=== PATIENT | female | born 1960 | race Caucasian/White ===

== ENCOUNTER 2019-06-25 17:16 | Emergency (ER) | payer BC ==
--- NOTE | 2019-06-25 17:37 | ED ---
Neurological HPI - HPI Summary HPI Summary: 58 y/o female presented to [facility] complaining of facial droop that started yesterday morning, 06/24/19. She has also experienced mild but unusual lapses in memory characterized by forgetting tasks. She is not experiencing weakness otherwise but notes that her right eye feels different than her left, noting that it does not feel like she can completely close this eye. states that the patient's facial droop appears to have worsened since onset. 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 - Hx Last Menstrual Period: month ago Onset/Duration: Started days ago, Still Present Timing: Constant Neurological Deficit Location: Facial - droop, right side Pain Intensity: 0 Pain Scale Used: 0-10 Numeric Character: Motor Weakness - facial droop, no other weakness, Confusion - mild memory lapses Associated Signs and Symptoms: Positive: Weakness - facial droop, no other weakness - Allergy/Home Medications Allergies/Adverse Reactions: Allergies Allergy/AdvReac Type Severity Reaction Status Date / Time No Known Allergies Allergy Verified 08/27/14 12:05 Home Medications: Home Medications Gemfibrozil 600 mg PO BID 06/25/19 [History Confirmed 06/25/19] Losartan TAB* [Cozaar TAB*] 100 mg PO DAILY 06/25/19 [History Confirmed 06/25/19 ] PMH/Surg Hx/FS Hx/Imm Hx Endocrine/Hematology History: Denies: Hx Diabetes, Hx Thyroid Disease Cardiovascular History: Denies: Hx Hypertension Respiratory History: Denies: Hx Asthma, Hx Chronic Obstructive Pulmonary Disease (COPD) GI History: Denies: Hx Ulcer - Cancer History Hx Chemotherapy: No Hx Radiation Therapy: No - Surgical History Surgery Procedure, Year, and Place: csection x2 Infectious Disease History: No Infectious Disease History: Denies: Hx Clostridium Difficile, Hx Hepatitis, Hx Human Immunodeficiency Virus (HIV), Hx of Known/Suspected MRSA, Traveled Outside the [place] in Last 30 Days - Family History Known Family History: Positive: Other - GI malignancy - Social History Alcohol Use: Occasionally Substance Use Type: Reports: None Smoking Status (MU): Never Smoked Tobacco Review of Systems Negative: Fever - vitals show temp at 97.4F Eyes: Other - positive - right eye not closing completely Positive: Weakness - facial droop, no other weakness All Other Systems Reviewed And Are Negative: Yes Physical Exam - Summary Physical Exam Summary: Appearance: The patient is well-nourished in no acute distress and in no acute pain. Skin: The skin is warm and dry, and skin color reflects adequate perfusion. HEENT: The head is normocephalic and atraumatic. The pupils are equal and reactive. The conjunctivae are clear and without drainage. Nares are patent and without drainage. Mouth reveals moist mucous membranes, and the throat is without erythema and exudate. The external ears are intact. The ear canals are patent and without drainage. The tympanic membranes are intact. Neck: The neck is supple with full range of motion and non-tender. There are no carotid bruits. There is no neck vein distension. Respiratory: Chest is non-tender. Lungs are clear to auscultation and breath sounds are symmetrical and equal. Cardiovascular: Heart is regular rate and rhythm. There is no murmur or rub auscultated. There is no peripheral edema and pulses are symmetrical and equal. Abdomen: The abdomen is soft and non-tender. There are normal bowel sounds heard in all four quadrants and there is no organomegaly palpated. Musculoskeletal: There is no back tenderness noted. Extremities are non-tender with full range of motion. There is good capillary refill. There is no peripheral edema or calf tenderness elicited. Neurological: Patient displays right side facial droop with forehead involved. She is able to close her right eye but it does not blink. Otherwise, no other acute neurological deficits noted. Patient is alert and oriented x3, GCS 15. Psychiatric: The patient has an appropriate affect and does not exhibit any anxiety or depression. Triage Information Reviewed: Yes Vital Signs On Initial Exam: Initial Vitals Temp Pulse Resp BP Pulse Ox 97.4 F 76 18 178/103 96 06/25/19 17:17 06/25/19 17:17 06/25/19 17:17 06/25/19 17:17 06/25/19 17:17 Vital Signs Reviewed: Yes Procedures - Sedation Patient Received Moderate/Deep Sedation with Procedure: No Diagnostics - Vital Signs Vital Signs Temp Pulse Resp BP Pulse Ox 06/25/19 17:17 97.4 F 76 18 178/103 96 - Laboratory Result Diagrams: 06/25/19 17:44 06/25/19 17:44 Lab Statement: Any lab studies that have been ordered have been reviewed, and results considered in the medical decision making process. - CT head CT Interpretation Completed By: Radiologist Summary of CT Findings: IMPRESSION. No acute intracranial abnormality. This report was reviewed by the ED physician. - EKG 1802 Cardiac Rate: NL EKG Rhythm: Sinus Rhythm Summary of EKG Findings: Normal sinus rhythm with rate of 72 bpm. The ED physician has reviewed and interpreted this EKG. Course/Dx - Course Course Of Treatment: Ms. Solano presented with 2 days of gradually worsening right facial symptoms. She looked like a classic Fagan's palsy on arrival with right sided facial droop, inability to blink her right eye and limited ability to raise her right eye. She was able to close her eye on the right. She denies any pain or history of cold sores. She did have some ticks on her last summer. Labs and CT scan were unremarkable and I will treat her with steroids. A Lyme test was sent - Diagnoses Provider Diagnoses: Fagan's palsy Discharge ED - Sign-Out/Discharge Documenting (check all that apply): Patient Departure - Discharge Plan Condition: Stable Disposition: HOME Prescriptions: predniSONE [Prednisone 20 MG TAB] 40 mg PO BID #28 tablet Patient Education Materials: [place] Palsy (ED) Referrals: Karla Woods DO [Primary Care Provider] - - Billing Disposition and Condition Condition: STABLE Disposition: Home - Attestation Statements Document Initiated by Jero: Yes Documenting Scribe: KRISTAL MCKENZIE Provider For Whom Jero is Documenting (Include Credential): LARISSA DAVIDSON MD Scribe Attestation: KRISTAL Verma, scribed for LARISSA DAVIDSON MD on 06/26/19 at 1239. Scribe Documentation Reviewed: Yes Provider Attestation: The documentation as recorded by the KRISTAL christian accurately reflects the service I personally performed and the decisions made by me, LARISSA DAVIDSON MD Status of Scribe Document: Viewed
[2019-06-25 17:56] LABS: Hematocrit 47 % (35-47); Hemoglobin 15.8 g/dL (12.0-16.0); Mean Corpuscular HGB Conc 34 g/dL (31-36); Mean Corpuscular Hemoglobin 29 pg (27-31); Mean Corpuscular Volume 86 fL (80-97); Mean Platelet Volume 8.1 fL (7.4-10.4); Platelet Count 282 10^3/uL (150-450); Red Blood Count 5.41 10^6 /uL (3.70-4.87); Red Cell Distribution Width 13 % (10-15); White Blood Count 5.9 10^3/uL (3.5-10.8)
[2019-06-25 18:01] LABS: ABS Eosinophils 0.1 10^3/ul (0-0.6); ABS Lymphocytes 2.2 10^3/ul (1.0-4.8); ABS Monocytes 0.5 10^3/ul (0-0.8); ABS Neutrophils 3.3 10^3/ul (1.5-7.7); ABS Nucleated RBC 0.1 10^3/ul; Eosinophil % 1.5 %; Lymphocyte % 35.9 %
[2019-06-25 18:02] LABS: Urine Appearance Clear; Urine Bilirubin Negative (Negative); Urine Blood 1+ (Negative); Urine Color Yellow; Urine Glucose Negative (Negative); Urine Ketones Negative (Negative); Urine Nitrite Negative (Negative); Urine Protein Negative (Negative); Urine Specific Gravity 1.019 (1.010-1.030); Urine Urobilinogen Negative (Negative)
--- OUTSIDE RECORDS SUMMARY | 2019-06-25 18:10 | XMS REPORT | Continuity of Care Document ---
:1960 External Reference #:[id number] Author Name Karla Woods, DO Address [address] [place] [id number] Problems Active Problems Provider Date Adult health examination Onset: 09/22/2017 Iron deficiency anemia Onset: 07/04/2013 Inactive Problems Toothache Onset: 12/09/2018 Inactive: 12/09/2018 Social History Type Date Description Comments Sex Unknown Allergies, Adverse Reactions, Alerts Description No Known Drug Allergies Medications Active Medications SIG Qnty Indications Ordering Provider Date Omeprazole Oral 90caps Unknown 01/30/[address] Metformin HCL Oral; Take 1 180tabs Unknown 05/26/2018 500mg Tablet By Mouth Tablets Twice Daily Losartan Potassium Oral; take 1 90tabs Unknown 05/13/2017 tablet by mouth 100mg Tablets once daily Gemfibrozil Oral; Take 1 180tabs Unknown 11/12/2014 600mg Tablet By Mouth Tablets Twice A Day History Medications Keflex 1 twice each day 20caps Unknown 12/09/2018 - 12/19/2018 500mg Capsules Oral Immunizations CPT Code Status Date Vaccine Lot # [id number] Given 05/12/2019 MMR Vaccine [id number] 06594 Given 04/11/2019 MMR Vaccine [id number] 48647 Given 04/11/2019 Flu < 65 years [id number] 90043 Given 03/22/2018 Shingrix - Shingles vaccine, Herpes Zoster 90636 Given 03/09/2018 Influenza Virus Vaccine, Quadrivalent, Split, Im Use 0.25ML 45984 Given 03/09/2018 Influenza Virus Vaccine, Quadrivalent, Split, Im Use 0.25ML 39637 Given 03/09/2018 Influenza Virus Vaccine, Quadrivalent, Split, Im Use 0.25ML 37246 Given 03/09/2018 Flu < 65 years 62419 Given 03/09/2018 Influenza Virus Vaccine, Quadrivalent, Split, Preservative Free 66030 Given 03/09/2018 Flumist 60363 Given 03/09/2018 Flu High Dose 25658 Given 03/09/2018 Influenza Virus Vaccine, Split, Preserv Free, Intradermal Use 45670 Given 09/22/2017 Shingrix - Shingles vaccine, Herpes Zoster 03115 Given 04/16/2017 Influenza Virus Vaccine, Quadrivalent, Split, Im Use 0.25ML 43460 Given 04/16/2017 Influenza Virus Vaccine, Quadrivalent, Split, Im Use 0.25ML 92015 Given 04/16/2017 Influenza Virus Vaccine, Quadrivalent, Split, Im Use 0.25ML 06533 Given 04/16/2017 Flu < 65 years 83707 Given 04/16/2017 Influenza Virus Vaccine, Quadrivalent, Split, Preservative Free 53823 Given 04/16/2017 Flumist 72079 Given 04/16/2017 Flu High Dose 86993 Given 04/16/2017 Influenza Virus Vaccine, Split, Preserv Free, Intradermal Use 00595 Given 04/06/2016 Influenza Virus Vaccine, Split, Preserv Free, Intradermal Use 42721 Given 04/06/2016 Flu High Dose 63957 Given 04/06/2016 Flumist 37195 Given 04/06/2016 Influenza Virus Vaccine, Quadrivalent, Split, Preservative Free 93885 Given 04/06/2016 Flu < 65 years 81679 Given 04/06/2016 Influenza Virus Vaccine, Quadrivalent, Split, Im Use 0.25ML 05782 Given 04/06/2016 Influenza Virus Vaccine, Quadrivalent, Split, Im Use 0.25ML 26723 Given 04/06/2016 Influenza Virus Vaccine, Quadrivalent, Split, Im Use 0.25ML 50026 Given 04/11/2015 Influenza Virus Vaccine, Quadrivalent, Split, Im Use 0.25ML 63686 Given 04/11/2015 Influenza Virus Vaccine, Quadrivalent, Split, Im Use 0.25ML 00693 Given 04/11/2015 Influenza Virus Vaccine, Quadrivalent, Split, Im Use 0.25ML 61820 Given 04/11/2015 Influenza Virus Vaccine, Quadrivalent, Split, Im Use 0.25ML 85073 Given 04/11/2015 Flu < 65 years 75779 Given 04/11/2015 Influenza Virus Vaccine, Quadrivalent, Split, Preservative Free 89492 Given 04/11/2015 Flumist 83320 Given 04/11/2015 Flu High Dose 34376 Given 03/23/2014 Flu High Dose 58689 Given 03/23/2014 Flumist 41395 Given 03/23/2014 Influenza Virus Vaccine, Quadrivalent, Split, Preservative Free 62157 Given 03/23/2014 Flu < 65 years 99765 Given 03/23/2014 Influenza Virus Vaccine, Quadrivalent, Split Virus, Im Use 0.5ML 55848 Given 04/11/2011 Influenza Virus Vaccine, Quadrivalent, Split, Im Use 0.25ML 06922 Given 04/11/2011 Influenza Virus Vaccine, Quadrivalent, Split, Im Use 0.25ML 41508 Given 04/11/2011 Influenza Virus Vaccine, Quadrivalent, Split, Im Use 0.25ML 84959 Given 04/11/2011 Flu < 65 years 71024 Given 04/11/2011 Influenza Virus Vaccine, Quadrivalent, Split, Preservative Free 47702 Given 04/11/2011 Flumist 24754 Given 04/11/2011 Flu High Dose 63278 Given 02/18/2010 Tdap - Boostrix/Adacel Vital Signs Date Vital Result Comment 04/11/2019 10:19am BP Systolic 120 mmHg BP Diastolic 88 mmHg Height 65.25 inches 5'5.25" Weight 187.00 lb Heart Rate 81 /min Body Temperature 96.1 F O2 % BldC Oximetry 98 % BMI (Body Mass Index) 30.9 kg/m2 12/09/2018 2:34pm BP Systolic 136 mmHg Height 65.50 inches 5'5.50" Weight 192.00 lb Heart Rate 86 /min Body Temperature 97.6 F O2 % BldC Oximetry 99 % BMI (Body Mass Index) 31.46 kg/m2 Results Test Acquired Date Facility Test Result H/L Range Note Comp Metabolic 05/11/2019 [facility] Sodium 140 mmol/L Normal 135-[address] [place] [address] [phone] Chloride 104 mmol/L Normal 101-111 Co2 Carbon Dioxide 29 mmol/L Normal 22-32 Glucose 95 mg/dL Normal 70-100 Blood Urea Nitrogen 18 mg/dL Normal 6-24 Creatinine 0.91 mg/dL Normal 0.51-0.95 BUN/Creatinine Ratio 19.8 Normal 8-20 Calcium 10.5 mg/dL High 8.6-10.3 Total Protein 7.5 g/dL Normal 6.4-8.9 Albumin 4.8 g/dL Normal 3.2-5.2 Globulin 2.7 g/dL Normal 2-4 Albumin/Globulin Ratio 1.8 Normal 1-3 Total Bilirubin 0.40 mg/dL Normal 0.2-1.0 Alkaline Phosphatase 64 U/L Normal 34-104 Alt 45 U/L Normal 7-52 Ast 23 U/L Normal 13-39 Egfr Non- 63.5 >60 Egfr 76.8 >60 1 Potassium 5.3 mmol/L High 3.5-5.0 Anion Gap 7 mmol/L Normal 2-11 Laboratory test 05/11/2019 [facility] Hemoglobin A1c 6.3 % High 4.0-5.[address] ([facility]) [place] [address] [phone] Lipid Profile 05/11/2019 [facility] Triglycerides 176 3 (Trig/Chol/HDL) [address] mg/[place] [address] [phone] Cholesterol 245 mg/dL 4 HDL Cholesterol 43.3 mg/dL 5 LDL Cholesterol 167 mg/dL 6 CFM Urine 04/11/2019 [facility] Medicine Urine, Microalbumin 30mg/L Microalbumin/Creat R ( )- - Urine, Creatinine, Random 200mg/dL Microalb/CR Ratio <30mg/g-normal Xray 04/11/2019 [facility] Mammography, Bilateral <pending> [address] [place] [address] [phone] 1 Because ethnic data is not always readily available, this report includes an eGFR for both -Americans and non- Americans. The National Kidney Disease Education Program (NKDEP) does not endorse the use of the MDRD equation for patients that are not between the ages of 18 and 70, are , have extremes of body size, muscle mass, or nutritional status, or are non- or non-. According to the National Kidney Foundation, irrespective of diagnosis, the stage of the disease is based on the level of kidney function: Stage Description GFR(mL/min/1.73 m(2)) 1 Kidney damage with normal or decreased GFR 90 2 Kidney damage with mild decrease in GFR 60-89 3 Moderate decrease in GFR 30-59 4 Severe decrease in GFR 15-29 5 Kidney failure <15 (or dialysis) 2 Therapeutic target for the treatment of diabetes mellitus patients is <7% HBA1C, and in selective patients <6.0%. Please refer to [place] [employer] diabetic care guidelines for further information. 3 Desirable: <150 Borderline High: 150-199 High: 200-499 Very High: >500 4 Desirable: <200 Borderline High: 200-239 High: >239 5 Low: <40 Desirable: 40-60 High: >60 6 Desirable: <100 Near Optimal: 100-129 Borderline High: 130-159 High: 160-189 Very High: >189 Procedures Date Code Description Status 12/09/2018 13520 Brief Emotional/Behav Assessment W/ Scoring Doc Per Completed Standard Inst Medical Devices Description No Information Available Encounters Type Date Location Provider Dx Diagnosis Office Visit 04/11/2019 [facility] Karla Woods DO Z00.00 Encntr for general 10:15a adult medical exam w/o abnormal findings Z68.30 Body mass index (BMI) 30.0-30.9, adult I10 Essential (primary) hypertension R73.03 Prediabetes Z13.31 Encounter for screening for depression Z23 Encounter for immunization Assessments Date Code Description Provider 04/11/2019 Z00.00 Encounter for general adult medical Karla Woods, examination without abnormal findings 04/11/2019 Z68.30 Body mass index (BMI) 30.0-30.9, adult Karla Woods, DO 04/11/2019 I10 Essential (primary) hypertension Karla Woods, DO 04/11/2019 R73.03 Prediabetes Karla Woods, DO 04/11/2019 Z13.31 Encounter for screening for depression Karla Woods, 04/11/2019 Z23 Encounter for immunization Karla Woods DO Plan of Treatment Future Appointment(s):10/17/2019 10:00 am - Karla Woods DO at [facility] - Karla Woods, DOZ00.00 Encounter for general adult medical examination without abnormal findingsComments:Overall doing well - no major complaints Vaccines today - MMR #1 and Flu (we discussed titers if sheprefers for MMR but she just wants to get the vaccines)HM womanDepression screen - negHIV test - declinesHepC test - declinesETOH - occSmoking - noneCholesterol - orderedPap - UTDMammo - orderedColon Ca screening - due - will contact GI - has a difficult colon to scope so usually goes out of town at recommendation of Dr. Castrejon shot - UTDFlu shot - TodayShingrix - got 2 but one "invalid" willget the next in the [id number] Body mass index (BMI) 30.0-30.9, adultComments:Discussed healthy eating and regular exercise and portion [id number] Essential (primary) hypertensionComments:well controlleddue for labsCMP and lipid panel next month when comes for the second MMRR73.03 PrediabetesComments:on metformin HgA1c with labs next [id number] Encounter for screening for [id number] Encounter for immunization Functional Status Description No Information Available Mental Status Description No Information Available Referrals Description No Information Available
[2019-06-25 18:12] LABS: Albumin/Globulin Ratio 1.9 (1-3); BUN/Creatinine Ratio 25.3 (8-20); Calcium 10.2 mg/dL (8.6-10.3); EGFR African American 76.8 (>60); EGFR Non-African American 63.5 (>60); Globulin 2.7 g/dL (2-4); Total Bilirubin 0.4 mg/dL (0.2-1.0); Total Protein 7.7 g/dL (6.4-8.9)
[2019-06-25 18:16] LABS: Urine Bacteria Absent (Absent); Urine Red Blood Cell Trace(0-2/hpf) (Absent); Urine Squamous Epithelial Cell Present (Absent); Urine White Blood Cell 3+(>20/hpf) (Absent)
[2019-06-25 19:04] LABS: TSH (Thyroid Stimulating Horm) 2.61 mcIU/mL (0.34-5.60)
[2019-06-25 19:53] VITALS: BP 137/74
== END 2019-06-25 19:36 | disposition home or self-care (01) ==
LOC: ED 17:16
DX: G51.0 Bell's palsy (principal); Z79.899 Other long term (current) drug therapy
CPT/HCPCS: 36415; 70450; 80053; 81003; 81015; 83605; 84443; 84484; 85025; 85610; 86618; 87086; 93005; 99282; J7512